=== PATIENT | female | born 1955 | race Caucasian/White ===

== ENCOUNTER → 2018-01-24 10:45 | Outpatient (POV) | payer MEDICAID, SELFPAY ==
[2018-01-24 11:01] VITALS: BP 123/69; PULSE 74; RESP 18; O2SAT 98
--- NOTE | 2018-01-24 16:28 | HMH.PMCON ---
Assessment and Plan (1) Degenerative disc disease Current visit: Yes Status: Chronic Category: Medical (2) Lumbar radiculopathy Current visit: Yes Status: Suspected Category: Medical Code(s): M54.16 - Radiculopathy, lumbar region - Assessment and plan all Dx Assessment and Plan for all problems:: We will take over the pain patient's pain pump refilled and reprogrammed in the [facility]. Patient currently had a Dilaudid 0.18 mg infusion a day. I will follow-up with this patient at her next intrathecal pain pump refill. This note was dictated using voice recognition software and may contain errors or omissions HPI - Data of Consult Consult date: 01/24/18 Requesting Physician: Deborah Silver APRN Primary Care Provider: Referral Provider, MD - Consult Narrative Reason for consult: Takeover of intrathecal pain pump management History of present illness: Ms. Sanders is a 62 year old female who presents today for consultation in regards to intrathecal pain pump management. Patient has been currently managed in our [place] office and doing quite well. Patient has a flowonix pain pump going at 0.18 mg of Dilaudid a day. Patient rates her pain a 6 out of 10 however she states this is high due to her travel here. Patient is currently doing well with her intrathecal pain pump. Patient denies any side effects to her medication. Patient states she is much more functional with it. Patient's SAMANTHA #[id number] reviewed and appropriate. CC: Deborah Silver APRN [facility] History I have reviewed the patient's past medical history: Yes Medical History: Reports:: Hyperlipidemia, Hypertension Other Medical History: Reports: Hypothyroidism - *Social History Smoking Status: Current every day smoker Tobacco Type: cigarettes # Packs/Day (cigarettes): 1 #Yrs smoked (if former smoker): 25 Alcohol Intake: never Occupational Status: other Housing: house Household Members: spouse - Psychiatric History Expresses thoughts of harming self/others: None Suicide Plan Description: No Plan *Family Hx:: Unable to obtain Review of Systems - Review of Systems ROS General: no recent weight change, no fever, no sleep disturbances Respiratory: no cough, no shortness of air, no recurring pulmonary infections Cardiovascular/Peripheral Vascular: No chest pain, No palpitations, no edema, no shortness of breath. Gastrointestinal: no incontinence, normal bowel movements reported Genitourinary: no incontinence Musculoskeletal: Back pain, leg pain Psychiatric: normal mood/ affect Neurological: [denies weakness in extremities], [denies balance issues] Objective Vital signs: Pulse Resp BP Pulse Ox 74 18 123/69 98 01/24/18 11:01 01/24/18 11:01 01/24/18 11:01 01/24/18 11:01 Narrative: Physical Exam General: Alert and oriented x3, no acute distress, pleasant and cooperative, [on room air] Lungs: Resps E/U, Symmetrical chest expansion, Eyes: PERRL Musculoskeletal: Flexion and extension of lumbar spine somewhat guarded secondary to pain, deep tendon reflexes normal, strength in upper and lower extremities [5/5], slightly antalgic gait noted Neurological: speech clear, interior specialist equal, no gross sensory deficits Opioid Risk Tool - Opioid Risk Tool-Female Family hx alcohol abuse: N Family hx illegal drugs: N Family hx rx drug abuse: N Personal hx alcohol abuse: N Personal hx illegal drugs: N Personal hx rx drug abuse: N Age: 45+ Hx of sexual abuse: N Mental health issues-ADD,OCD,Bipolar, etc: N Hx of depression: N Female Risk Score: 0
--- NOTE | 2018-01-24 16:31 | P.CONS_ITS ---
Assessment and Plan (1) Degenerative disc disease Current visit: Yes Status: Chronic Category: Medical (2) Lumbar radiculopathy Current visit: Yes Status: Suspected Category: Medical Code(s): M54.16 - Radiculopathy, lumbar region - Assessment and plan all Dx Assessment and Plan for all problems:: We will take over the pain patient's pain pump refilled and reprogrammed in the [facility]. Patient currently had a Dilaudid 0.18 mg infusion a day. I will follow-up with this patient at her next intrathecal pain pump refill. This note was dictated using voice recognition software and may contain errors or omissions HPI - Data of Consult Consult date: 01/24/18 Requesting Physician: Deborah Silver APRN Primary Care Provider: Referral Provider, MD - Consult Narrative Reason for consult: Takeover of intrathecal pain pump management History of present illness: Ms. Sanders is a 62 year old female who presents today for consultation in regards to intrathecal pain pump management. Patient has been currently managed in our [place] office and doing quite well. Patient has a flowonix pain pump going at 0.18 mg of Dilaudid a day. Patient rates her pain a 6 out of 10 however she states this is high due to her travel here. Patient is currently doing well with her intrathecal pain pump. Patient denies any side effects to her medication. Patient states she is much more functional with it. Patient's SAMANTHA #[id number] reviewed and appropriate. CC: Deborah Silver APRN [facility] History I have reviewed the patient's past medical history: Yes Medical History: Reports:: Hyperlipidemia, Hypertension Other Medical History: Reports: Hypothyroidism - *Social History Smoking Status: Current every day smoker Tobacco Type: cigarettes # Packs/Day (cigarettes): 1 #Yrs smoked (if former smoker): 25 Alcohol Intake: never Occupational Status: other Housing: house Household Members: spouse - Psychiatric History Expresses thoughts of harming self/others: None Suicide Plan Description: No Plan *Family Hx:: Unable to obtain Review of Systems - Review of Systems ROS General: no recent weight change, no fever, no sleep disturbances Respiratory: no cough, no shortness of air, no recurring pulmonary infections Cardiovascular/Peripheral Vascular: No chest pain, No palpitations, no edema, no shortness of breath. Gastrointestinal: no incontinence, normal bowel movements reported Genitourinary: no incontinence Musculoskeletal: Back pain, leg pain Psychiatric: normal mood/ affect Neurological: [denies weakness in extremities], [denies balance issues] Objective Vital signs: Pulse Resp BP Pulse Ox 74 18 123/69 98 01/24/18 11:01 01/24/18 11:01 01/24/18 11:01 01/24/18 11:01 Narrative: Physical Exam General: Alert and oriented x3, no acute distress, pleasant and cooperative, [ on room air] Lungs: Resps E/U, Symmetrical chest expansion, Eyes: PERRL Musculoskeletal: Flexion and extension of lumbar spine somewhat guarded secondary to pain, deep tendon reflexes normal, strength in upper and lower extremities [5/5], slightly antalgic gait noted Neurological: speech clear, sleeve wheel maker equal, no gross sensory deficits Opioid Risk Tool - Opioid Risk Tool-Female Family hx alcohol abuse: N Family hx illegal drugs: N Family hx rx drug abuse: N Personal hx alcohol abuse: N Personal hx illega
== END ==
PROVIDERS: Visit Provider Clinical Nurse Specialist Family Health
DX: M54.16 Radiculopathy, lumbar region (principal)
CPT/HCPCS: 99202

== ENCOUNTER → 2019-04-25 11:09 | Outpatient (POV) | payer MEDICAID, SELFPAY ==
[2019-04-25 11:54] VITALS: BP 136/72; PULSE 96; RESP 18; O2SAT 99; BMI 34.5
--- NOTE | 2019-04-25 12:44 | P.CONS_ITS ---
[facility] Pain Management SOAP Note Subjective:: Patient is a pleasant 63-year-old white female who presents today for consultation in regards to a neurostimulator. She has an intrathecal pain pump which she states works very well for her back however most of her pain is in her low hips and bilateral legs. Patient states that she discussed her cielo rostimulator with Dr. Wade at his [place] clinic and wants to move forward with this. Patient has swelling of bilateral lower extremities along with color changes. She rates her pain a 9 out of 10 bilateral legs. Patient is not on any anticoagulation therapy. She is tried and failed multiple therapies including injections, anti-inflammatories, oral medications, intrathecal pain pump adjustments. She continues a home stretching program. ROS General: no recent weight change, no fever, no sleep disturbances Respiratory: no cough, no shortness of air, no recurring pulmonary infections Cardiovascular/Peripheral Vascular: No chest pain, No palpitations, no edema, no shortness of breath. Gastrointestinal: no incontinence, normal bowel movements reported Genitourinary: no incontinence Musculoskeletal: Back pain, leg pain Psychiatric: normal mood/ affect Neurological: [denies weakness in extremities], [denies balance issues] Objective:: Physical Exam General: Alert and oriented x3, no acute distress, pleasant and cooperative, [on room air] Lungs: Resps E/U, Symmetrical chest expansion, Eyes: PERRL Musculoskeletal: Flexion and extension of lumbar spine somewhat guarded secondary to pain, deep tendon reflexes normal, strength in upper and lower extremities [5/5], [abnormal gait noted] Neurological: speech clear, digital cartographer equal, no gross sensory deficits Assessment:: Degenerative disc disease lumbar spine with lumbar radiculopathy and CRPS type II bilateral lower extremities Plan:: Patient would like to go to her psychiatrist to get her stimulator consultation in [place]. Patient is can look into this and give us a call when her appointment is so we can look for the note after that we will begin the process of setting her up for a trial... Dr. Wade has reviewed this note and agrees with this plan of care. This note was dictated using voice recognition software and may contain errors or omissions Pain Management Hx Components *Have you ever received a pneumonia vaccine?: Yes *Have you received a flu vaccine this season?: Yes - *Social History *Occupational Status:: other *Travel in the last 8 weeks: None
[2019-04-25 13:01] LABS: Amphetamine/Metha Screen,Urine Negative ng/mL (<1000); Barbiturates Screen,Urine Negative ng/mL (<200); Benzodiazepines Screen,Urine Negative ng/mL (<200); Cannabinoid Screen,Urine Negative ng/mL (<50); Cocaine Screen,Urine Negative ng/mL (<300); Methadone Screen,Urine Negative ng/mL (<300); Opiate Screen,Urine Negative ng/mL (<300); Phencyclidine Screen,Urine Negative ng/mL (<25)
[2019-04-29 18:02] LABS: Opiates Negative (Cutoff=100)
== END ==
PROVIDERS: PCP Clinical Nurse Specialist Family Health; Visit Provider Clinical Nurse Specialist Family Health
DX: M51.16 Intervertebral disc disorders with radiculopathy, lumbar region (principal); G57.73 Causalgia of bilateral lower limbs
CPT/HCPCS: 80305; 80361; 80365; 99212; G0480

== ENCOUNTER → 2019-07-10 10:47 | Outpatient (POV) | payer MEDICAID, SELFPAY ==
[2019-07-10 10:55] VITALS: BP 132/50; PULSE 94; RESP 18; O2SAT 98; BMI 34.5
--- NOTE | 2019-07-10 12:51 | HMH.PMPROC ---
- Procedure Date: 07/10/19 Time: 12:51 Anesthesiologist:: Deborah Silver APRN Complications:: None Pre-procedure Diagnosis:: Generative disc disease lumbar spine with lumbar radiculopathy symptoms bilateral foot pain with autonomic changes and CRPS type II symptoms Post-procedure Diagnosis:: Same Indications for Procedure:: Patient is a 63-year-old white female who presents today have her neurostimulator lead removed post trial. Patient states she had 80 to 90% relief of her pain or autonomic symptoms decreased. Patient states she was much more active she rates her pain today a 5 out of 10 after her neurostimulator was turned off overall patient very satisfied with a trial. This is a successful trial. She is failed all modalities of treatment including injections, intrathecal pain pump changes oral medications physical therapy and is not a surgical candidate. Physical Exam General: Alert and oriented x3, no acute distress, pleasant and cooperative, [on room air] Lungs: Resps E/U, Symmetrical chest expansion, Eyes: PERRL Musculoskeletal: Flexion and extension of lumbar spine somewhat guarded secondary to pain, deep tendon reflexes normal, strength in upper and lower extremities [5/5], [abnormal gait noted] Neurological: speech clear, talent recruiter equal, no gross sensory deficits Procedure Details:: After informed consent was obtained the risk and benefits of the procedure were explained to the patient. Patient's vital signs were monitored with noninvasive blood pressure cuff and pulse oximeter. Patient's tape was removed on her back. The area in which her epidural leads entered was examined to ensure no redness or draining. Patient leads were then removed in sterile fashion. Patient then had Band-Aids placed over the puncture sites. Patient tolerated the procedure well. Plan and Disposition:: We will schedule the patient for permanent placement. She is not on any blood thinners. I will follow-up with her after this reassess her symptoms at that time she is been instructed to call the office if she has any issues prior to her next appointment. She had bilateral leads placed at T8-T9 vertebral bodies. Dr. Wade has reviewed this note and agrees with this plan of care. This note was dictated using voice recognition software and may contain errors or omissions
== END ==
PROVIDERS: Visit Provider Clinical Nurse Specialist Family Health
DX: M51.16 Intervertebral disc disorders with radiculopathy, lumbar region (principal); G57.73 Causalgia of bilateral lower limbs
CPT/HCPCS: 99212

== ENCOUNTER → 2019-08-17 09:16 | Outpatient (POV) | payer MEDICAID, SELFPAY ==
[2019-08-17 09:47] VITALS: BP 149/74; PULSE 97; RESP 18; O2SAT 99; BMI 33.8
--- NOTE | 2019-08-17 09:58 | HMH.PAINSOAP ---
[facility] Pain Management SOAP Note Subjective:: Patient is a pleasant 63-year-old white female who presents today for follow-up after a spinal cord stimulator placement. She is being treated for low back pain with lumbar radiculopathy symptoms, as well as bilateral foot pain with autonomic trunk is and CRPS type II symptoms of her lower extremities. As her pain a 3 out of 10 today. She says she is doing well overall. She also has an intrathecal pain pump. Patient tried therapies of physical therapy, failed injections, oral medications. Patient is not a surgical candidate. She is continue with anti-inflammatories and a home stretching program. Patient says that she is concerned of falling and is requesting order for a scooter or power chair. She says that she did do an evaluation at [facility] in [place]. It was determined that the patient does need a scooter for safety. Patient says that she was denied the power chair. She is asking for a another order for the device. Review of Systems General: No recent weight changes, no fever, no sleep disturbances Respiratory: No cough, no shortness of air, no recurring pulmonary infections Cardiovascular/peripheral vascular: No chest pain, no palpitations, no edema, no shortness of breath Gastrointestinal: No new onset incontinence, normal bowel movements reported Genitourinary: No new onset incontinence Musculoskeletal: Low back pain Psychiatric: Normal mood/affect Neurological: [Denies weakness in extremities], [denies balance issues] Objective:: Physical exam General: Alert and oriented x3, no acute distress, pleasant and cooperative, [on room air] Lungs: Respirations even and unlabored, symmetrical chest expansion Eyes: PERRL Musculoskeletal: Flexion and extension of lumbar spine somewhat guarded secondary to pain, deep tendon reflexes normal, strength in upper and lower extremities [5/5], [abnormal gait noted] Neurological: Speech clear, spooling machine operator equal, no gross sensory deficit Assessment:: Degenerative disc disease lumbar spine with lumbar radiculopathy symptoms, bilateral foot pain with autonomic changes, CRPS type II lower extremities Plan:: Overall, the patient is doing well following her spinal cord stimulator placement. The wound VAC was removed today. Her incision was well approximated, no redness, no drainage was noted to the area. She will follow-up with us in 2 weeks for suture removal. Patient has instructed to contact the clinic if she has any concerns before next appointment. Dr. Wade has reviewed this note and agrees with this plan of care. This note was dictated using voice recognition software and make contain errors or omissions. 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 Denies: Blood Transfusion Reaction Laterality Cases: Bilateral: Carpal Tunnel Release, Other Other Surgeries: Yes: Cholecystectomy, Hysterectomy-Total, Other (hysterectomy, bladder tack, pain pump). No: Pacemaker Amputation: No Fractures: No - *Social History Smoking Status: Current every day smoker Tobacco Type: cigarettes # Packs/Day (cigarettes): 1 #Yrs smoked (if former smoker): 25 Alcohol Intake: never Substance Use Type: denies use *Occupational Status:: other Housing: house Household Members: spouse *Travel in the last 8 weeks: None - Psychiatric History Pschychiatric History:: Reports:: Depression Family Hx:: Asthma, Cancer, Coronary Artery Disease, Diabetes, Heart Attack, Hyperlipidemia, Hypertension, Stroke, Thyroid Disorder, Substance ab
== END ==
PROVIDERS: PCP Anesthesiology; Visit Provider Clinical Nurse Specialist Family Health
DX: M51.16 Intervertebral disc disorders with radiculopathy, lumbar region (principal); G57.73 Causalgia of bilateral lower limbs; M79.672 Pain in left foot; M79.671 Pain in right foot
CPT/HCPCS: 99212

== ENCOUNTER → 2019-09-04 12:57 | Outpatient (POV) | payer MEDICAID, SELFPAY ==
[2019-09-04 13:34] VITALS: BP 154/64; PULSE 112; RESP 18; O2SAT 99; BMI 34.2
--- NOTE | 2019-09-04 13:35 | HMH.PAINSOAP ---
[facility] Pain Management SOAP Note Subjective:: Patient is a pleasant 63-year-old white female who presents today for follow-up after neurostimulator implant overall patient is doing extremely well she rates her pain a 3 out of 10. She is having some swelling in her legs however she does have a cardiac history. She is going to be following up with her workforce development vice president. She is also having some knee pain she is in a see the clinic in [place] for knee injections. Patient overall doing well. She does have an intrathecal pain pump. Patient does have some weakness in her legs. She may need physical therapy once she has been released from restrictions with a neurostimulator implant. There is no sign symptoms of infection. ROS General: no recent weight change, no fever, no sleep disturbances Respiratory: no cough, no shortness of air, no recurring pulmonary infections Cardiovascular/Peripheral Vascular: No chest pain, No palpitations, no edema, no shortness of breath. Gastrointestinal: no new onset incontinence, normal bowel movements reported Genitourinary: no new onset incontinence Musculoskeletal: Back pain, leg pain Psychiatric: normal mood/ affect Neurological: [denies new onset weakness in extremities], [denies new onset balance issues] Objective:: Physical Exam General: Alert and oriented x3, no acute distress, pleasant and cooperative, [on room air] Lungs: Resps E/U, Symmetrical chest expansion, Eyes: PERRL Musculoskeletal: Flexion and extension of lumbar spine somewhat guarded secondary to pain, deep tendon reflexes normal, strength in upper and lower extremities [5/5], [abnormal gait noted] Neurological: speech clear, ham marker equal, no gross sensory deficits Assessment:: Degenerative disc disease lumbar spine with lumbar radiculopathy symptoms, bilateral foot pain with autonomic changes and CRPS type II Plan:: We will see the patient back at her next appointment for her intrathecal pain pump refill and reprogram. She is been instructed to call the office if she has any issues prior to her next appointment. Dr. Wade has reviewed this note and agrees with this plan of care. 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 Denies: Blood Transfusion Reaction Laterality Cases: Bilateral: Carpal Tunnel Release, Other Other Surgeries: Yes: Cholecystectomy, Hysterectomy-Total, Other (hysterectomy, bladder tack, pain pump). No: Pacemaker Amputation: No Fractures: No - *Social History Smoking Status: Current every day smoker Tobacco Type: cigarettes # Packs/Day (cigarettes): 1 #Yrs smoked (if former smoker): 25 Alcohol Intake: never Substance Use Type: denies use *Occupational Status:: other Housing: house Household Members: spouse *Travel in the last 8 weeks: None - Psychiatric History Pschychiatric History:: Reports:: Depression Family Hx:: Asthma, Cancer, Coronary Artery Disease, Diabetes, Heart Attack, Hyperlipidemia, Hypertension, Stroke, Thyroid Disorder, Substance abuse, Alcoholism
== END ==
PROVIDERS: Visit Provider Clinical Nurse Specialist Family Health
DX: M51.16 Intervertebral disc disorders with radiculopathy, lumbar region (principal); G57.73 Causalgia of bilateral lower limbs; Z85.89 Personal history of malignant neoplasm of other organs and systems; J44.9 Chronic obstructive pulmonary disease, unspecified; F32.9 Major depressive disorder, single episode, unspecified; K21.9 Gastro-esophageal reflux disease without esophagitis; E78.5 Hyperlipidemia, unspecified; I10 Essential (primary) hypertension; Z72.0 Tobacco use; E03.9 Hypothyroidism, unspecified
CPT/HCPCS: 99212

== ENCOUNTER → 2019-12-11 13:53 | Day surgery (SDC) | payer MEDICAID, SELFPAY ==
[2019-12-11 14:25] VITALS: BP 165/88; BP 168/87; BP 184/87; PULSE 108; PULSE 97; PULSE 98; RESP 18; O2SAT 93; O2SAT 94; O2SAT 99; BMI 34.5
--- NOTE | 2019-12-11 14:48 | HMH.PMPROC ---
- Procedure Date: 12/11/19 Time: 14:48 Anesthesiologist:: Deborah Silver APRN Complications:: None Pre-procedure Diagnosis:: Degenerative disc disease lumbar spine with lumbar radiculopathy Post-procedure Diagnosis:: Same Indications for Procedure:: Patient is a very pleasant 64-year-old white female who presents today for intrathecal pain pump refill and reprogram overall she is doing extremely well. Patient is currently on Dilaudid 0.5 mg/day. She denies side effects or medication [facility] #[id number] reviewed and appropriate. Physical Exam General: Alert and oriented x3, no acute distress, pleasant and cooperative, [on room air] Lungs: Resps E/U, Symmetrical chest expansion, Eyes: PERRL Musculoskeletal: Flexion and extension of lumbar spine somewhat guarded secondary to pain, deep tendon reflexes normal, strength in upper and lower extremities [5/5], [abnormal gait noted] Neurological: speech clear, client program manager equal, no gross sensory deficits Procedure Details:: Informed consent was obtained and the risk and benefits of the procedure were explained to the patient. The patient was taken to the procedure room where noninvasive monitoring was placed including noninvasive blood pressure cuff and pulse oximeter. Patient's pump was interrogated. The area over the pump was cleansed with chlorhexidine as a cleansing solution. In sterile fashion the pump was accessed with a 22-gauge needle. Approximately 9 mL's were removed of the pump solution and discarded appropriately. The pump was then refilled with 20 mL's of hydromorphone 7 mg/mL. The needle was withdrawn and a bandage was placed over the puncture site. The infusion rate was reprogrammed to continue at 0.5 mg/day. The patient tolerated the procedure well. Plan and Disposition:: We will follow-up at her next intrathecal pain pump refill and reprogram she is been instructed to call the office if she has any issues prior to her next appointment. We specifically discussed risk factors for Covid-19 including age, heart or lung disease, diabetes, immunosuppression and travel. We also discussed that NSAIDs may worsen Covid-19 infection symptoms and that they should not be used to treat Covid-19 symptoms. Patient was also informed that corticosteroids in any form oral or injectable will decrease immune response and may increase risk of Covid-[address] Wade has reviewed this patient's chart and this note and agrees with plan of care. Patient has been instructed to call the office if they have any issues prior to the next appointment.
== END ==
PROVIDERS: PCP Nurse Practitioner Family; Visit Provider Clinical Nurse Specialist Family Health
DX: M51.16 Intervertebral disc disorders with radiculopathy, lumbar region (principal)
CPT/HCPCS: 95991

== ENCOUNTER 2020-04-15 13:11 | Day surgery (SDC) | payer MEDICAID, SELFPAY ==
[2020-04-15 13:21] VITALS: BP 137/73; BP 154/65; PULSE 97; PULSE 99; RESP 18; TEMP 36.1; O2SAT 91; BMI 34.0
[2020-04-15 13:34] VITALS: BP 171/76; PULSE 104; O2SAT 91
--- NOTE | 2020-04-15 13:35 | P.PCN_ITS ---
- Procedure Date: 04/15/20 Time: 13:35 Anesthesiologist:: Deborah Silver APRN Complications:: None Pre-procedure Diagnosis:: Degenerative disc disease lumbar spine lumbar radiculopathy Post-procedure Diagnosis:: Same Indications for Procedure:: Patient is a very pleasant 64-year-old white female who presents today for intrathecal pain pump refill and reprogram. Overall she is doing well she is currently on a infusion of Dilaudid 0.5 mg/day. [facility] #[id number] reviewed and appropriate. Urine drug screens have been appropriate. She denies side effects from medication. She recently has been diagnosed with bone spurs in her right foot and is wearing a boot. This has increased her pain somewhat. She would like a small increase in her pain pump today. Physical Exam General: Alert and oriented x3, no acute distress, pleasant and cooperative, [on room air] Lungs: Resps E/U, Symmetrical chest expansion, Eyes: PERRL Musculoskeletal: Flexion and extension of lumbar spine somewhat guarded secondary to pain, deep tendon reflexes normal, strength in upper and lower extremities [5/5], [abnormal gait noted] Neurological: speech clear, executive search consultant equal, no gross sensory deficits Procedure Details:: Informed consent was obtained and the risk and benefits of the procedure were explained to the patient. The patient was taken to the procedure room where noninvasive monitoring was placed including noninvasive blood pressure cuff and pulse oximeter. Patient's pump was interrogated. The area over the pump was cleansed with chlorhexidine as a cleansing solution. In sterile fashion the pump was accessed with a 22-gauge needle. Approximately 10.5 mL's were removed of the pump solution and discarded appropriately. The pump was then refilled with 20 mL's of hydromorphone 7 mg/mL. The needle was withdrawn and a bandage was placed over the puncture site. The infusion rate was reprogrammed to a 5.5 mg/day. The patient tolerated the procedure well. Plan and Disposition:: I will follow-up with the patient at her next intrathecal pain pump refill and reprogram she has been instructed to call the office if she has any issues prior to next appointment. Dr. Wade has reviewed this note and agrees with this plan of care. This note was dictated using voice recognition software and may contain errors or omissions
[2020-04-15 13:40] VITALS: BP 171/76; PULSE 101; O2SAT 91
== END 2020-04-15 13:59 | disposition home or self-care (01) ==
PROVIDERS: PCP Nurse Practitioner Family; Visit Provider Clinical Nurse Specialist Family Health
DX: M51.16 Intervertebral disc disorders with radiculopathy, lumbar region (principal); I10 Essential (primary) hypertension; J44.9 Chronic obstructive pulmonary disease, unspecified; F41.9 Anxiety disorder, unspecified; F32.9 Major depressive disorder, single episode, unspecified; E03.9 Hypothyroidism, unspecified; M79.18 Myalgia, other site; M19.90 Unspecified osteoarthritis, unspecified site; Z88.0 Allergy status to penicillin; Z88.1 Allergy status to other antibiotic agents; Z88.6 Allergy status to analgesic agent; Z72.0 Tobacco use; Z90.49 Acquired absence of other specified parts of digestive tract
CPT/HCPCS: 62370

== ENCOUNTER 2020-09-09 12:12 | Day surgery (SDC) | payer MEDICAID, SELFPAY ==
[2020-09-09 12:50] VITALS: BP 179/86; PULSE 100; RESP 18; TEMP 36.6; O2SAT 98; BMI 34.5
[2020-09-09 13:02] VITALS: BP 185/90; PULSE 94; RESP 18; O2SAT 95
[2020-09-09 13:21] VITALS: BP 180/88; PULSE 93; RESP 18; O2SAT 95
--- NOTE | 2020-09-09 13:28 | P.PCN_ITS ---
- Procedure Date: 09/09/20 Time: 13:28 Anesthesiologist:: Deborah Silver APRN Complications:: None Pre-procedure Diagnosis:: Degenerative disc disease lumbar spine lumbar radiculopathy Post-procedure Diagnosis:: Same Indications for Procedure:: Patient is a pleasant 64-year-old white female who presents today for intrathecal pain pump refill and reprogram. Overall she is doing well she is currently on an infusion of Dilaudid 0.55 mg/day. [facility] #[id number] reviewed and appropriate. She is having some hip pain however it is not constant. It does not seem to be coming from her back. I discussed with her to see her primary care for potential x-rays if she is continuing to have hip pain. She would like an increase in her intrathecal infusion. Procedure Details:: Informed consent was obtained and the risk and benefits of the procedure were explained to the patient. The patient was taken to the procedure room where noninvasive monitoring was placed including noninvasive blood pressure cuff and pulse oximeter. Patient's pump was interrogated. The area over the pump was cleansed with chlorhexidine as a cleansing solution. In sterile fashion the pump was accessed with a 22-gauge needle. Approximately 7.5 mL's were removed of the pump solution and discarded appropriately. The pump was then refilled with 20 mL's of Dilaudid 7 mg/mL. The needle was withdrawn and a bandage was placed over the puncture site. The infusion rate was reprogrammed to 0.65 milligrams per day.. The patient tolerated the procedure well. Plan and Disposition:: We will see the patient back at her next intrathecal pain pump refill and reprogram she has been instructed to call the office if she has any issues. I also encouraged her to reach out to the hobbies and crafts sales representative to have her stimulator reprogrammed. Dr. Wade has reviewed this note and agrees with this plan of care. This note was dictated using voice recognition software and may contain errors or omissions
[2020-09-09 13:40] VITALS: BP 156/73; PULSE 81; RESP 18; O2SAT 98
== END 2020-09-09 13:40 | disposition home or self-care (01) ==
LOC: SC.PAINP 12:14
PROVIDERS: PCP Nurse Practitioner Family; Visit Provider Clinical Nurse Specialist Family Health
DX: M51.16 Intervertebral disc disorders with radiculopathy, lumbar region (principal); E78.5 Hyperlipidemia, unspecified; I10 Essential (primary) hypertension; K21.9 Gastro-esophageal reflux disease without esophagitis; E07.9 Disorder of thyroid, unspecified; Z88.0 Allergy status to penicillin; Z88.1 Allergy status to other antibiotic agents; Z88.4 Allergy status to anesthetic agent; Z72.0 Tobacco use; Z79.899 Other long term (current) drug therapy
CPT/HCPCS: 62370

== ENCOUNTER 2021-01-13 13:23 | Day surgery (SDC) | payer MEDICAID, SELFPAY ==
[2021-01-13 13:28] VITALS: BP 180/84; PULSE 108; RESP 18; TEMP 36.7; O2SAT 97; BMI 36.2
[2021-01-13 13:38] VITALS: BP 150/64; PULSE 89; RESP 18; O2SAT 94
[2021-01-13 13:53] VITALS: BP 150/64; PULSE 92; RESP 18; O2SAT 91
--- NOTE | 2021-01-13 13:58 | HMH.PMPROC ---
- Procedure Date: 01/13/21 Time: 14:01 Anesthesiologist:: Deborah Silver APRN Complications:: None Pre-procedure Diagnosis:: Degenerative disc disease lumbar spine lumbar radiculopathy and back pain Post-procedure Diagnosis:: Same Indications for Procedure:: Patient is a pleasant 65-year-old white female who presents today for intrathecal pain pump refill and reprogram. She rates her pain today 5 out of 10 she is recently had a heart catheterization she is also recently lost a daughter. Her has also recently been diagnosed with lung cancer. Patient does not need any changes made to her intrathecal infusion. Patient is currently on 0.65 mg of Dilaudid a day. She denies side effects to this. Procedure Details:: Informed consent was obtained and the risk and benefits of the procedure were explained to the patient. The patient was taken to the procedure room where noninvasive monitoring was placed including noninvasive blood pressure cuff and pulse oximeter. Patient's pump was interrogated. The area over the pump was cleansed with chlorhexidine as a cleansing solution. In sterile fashion the pump was accessed with a 22-gauge needle. Approximately 8 mL's were removed of the pump solution and discarded appropriately. The pump was then refilled with 20 mL's of Dilaudid 7 mg/mL. The needle was withdrawn and a bandage was placed over the puncture site. The infusion rate was reprogrammed to continue at 0.65 mg/day. The patient tolerated the procedure well. Plan and Disposition:: We will see the patient back in her next intrathecal pain pump refill and reprogram she is been instructed to call the office if she has any issues prior to her next appointment. [facility] #[id number] reviewed and appropriate. Dr. Wade has reviewed this note and agrees with this plan of care. This note was dictated using voice recognition software and may contain errors or omissions
[2021-01-13 14:06] VITALS: BP 156/74; PULSE 90; RESP 18; O2SAT 98
== END 2021-01-13 14:07 | disposition home or self-care (01) ==
LOC: SC.PAINP 13:25
PROVIDERS: PCP Nurse Practitioner Family; Visit Provider Clinical Nurse Specialist Family Health
DX: M51.16 Intervertebral disc disorders with radiculopathy, lumbar region (principal); Z45.1 Encounter for adjustment and management of infusion pump; J44.9 Chronic obstructive pulmonary disease, unspecified; G47.33 Obstructive sleep apnea (adult) (pediatric); K21.9 Gastro-esophageal reflux disease without esophagitis; F32.9 Major depressive disorder, single episode, unspecified; E78.5 Hyperlipidemia, unspecified; I10 Essential (primary) hypertension; Z88.0 Allergy status to penicillin; Z88.1 Allergy status to other antibiotic agents; Z88.5 Allergy status to narcotic agent; Z79.899 Other long term (current) drug therapy
CPT/HCPCS: 95991

== ENCOUNTER → 2021-06-24 10:14 | Outpatient (POV) | payer MEDICAID, SELFPAY ==
--- NOTE | 2021-06-24 10:41 | HMH.PMPROC ---
- Procedure Date: 06/24/21 Time: 10:41 Anesthesiologist:: Mili Young APRN Complications:: None Pre-procedure Diagnosis:: Degenerative disc disease lumbar spine with lumbar radiculopathy symptoms and low back pain Post-procedure Diagnosis:: Same Indications for Procedure:: Patient is a 65-year-old white female who presents today for intrathecal pain pump adjustment. She is at home refill patient through [employer]. She is managed with her urine drug screens and medication through their company. She is currently on hydromorphone at 0.80 mg/day and denies any side effects. She is doing well overall with her medicine. She does not need any changes today. She does report to have some tenderness at the incision site. Tai #[id number] has been reviewed and is appropriate. Drug screen is appropriate. Physical exam General: Alert and oriented x3, no acute distress, pleasant and cooperative Lungs: Respirations even and unlabored, symmetrical chest expansion Eyes: PERRL Musculoskeletal: Flexion and extension of lumbar [spine] somewhat guarded secondary to pain, [antalgic gait noted] Neurological: Speech clear, no gross sensory deficit Procedure Details:: Informed consent was obtained and the risk and benefits of the procedure were explained to the patient. Patient was taken to the procedure room where noninvasive monitoring was placed including noninvasive blood pressure cuff and pulse oximeter. Patient's pump was interrogated and was reprogrammed to continued at hydromorphone at 0.80 mg/day. The patient tolerated the procedure well with no complications. Plan and Disposition:: We will see the patient back as needed. She will continue with home refills.. Patient has been instructed to contact the clinic with any concerns before the next appointment. Dr. Wade has reviewed this note and agrees with this plan of care. This note was dictated using voice recognition software and make contain errors or omissions.
[2021-06-24 10:51] VITALS: BP 144/77; PULSE 89; RESP 18; O2SAT 97; BMI 34.4
== END ==
PROVIDERS: Visit Provider Clinical Nurse Specialist Family Health
DX: M51.16 Intervertebral disc disorders with radiculopathy, lumbar region (principal)
CPT/HCPCS: 99212; G0463

== ENCOUNTER → 2021-11-13 12:56 | Outpatient (POV) | payer MEDICARE, MEDICAID, SELFPAY ==
--- NOTE | 2021-11-13 13:57 | XR_ITS ---
FINAL REPORT CLINICAL HISTORY: c/o back pain and left hip pain FINDINGS: Thoracic spine 2 views were obtained. There is no acute fracture. Alignment is normal. There is accentuation of the thoracic kyphosis. There is moderate anterior osteophyte formation. A spinal stimulator is present. IMPRESSION: Moderate anterior osteophyte formation. Lumbar spine 2 views were obtained. There is no acute fracture. Alignment is normal. There is mild anterior osteophyte formation. A spinal stimulator is present. IMPRESSION: Mild anterior osteophyte formation. Reviewed, Interpreted and Dictated by Cordell Roe MD Transcribed by Tristan Clemons Authenticated by Cordell Roe MD on 11/13/2021 03:15:20 PM [facility]
--- NOTE | 2021-11-13 13:57 | XR_ITS ---
FINAL REPORT CLINICAL HISTORY: HIP AND BACK PAIN FINDINGS: 2 views of the left hip were obtained. There is no acute fracture or dislocation. The joint spaces are intact. There are no soft tissue abnormalities. IMPRESSION: No acute process. Reviewed, Interpreted and Dictated by Cordell Roe MD Transcribed by Tristan Clemons Authenticated by Cordell Roe MD on 11/13/2021 03:15:21 PM [facility]
[2021-11-13 14:01] VITALS: BP 138/70; PULSE 86; RESP 18; TEMP 36.2; O2SAT 95; BMI 34.5
--- NOTE | 2021-11-13 15:02 | HMH.PAINSOAP ---
[facility] Pain Management SOAP Note Subjective:: Patient is a pleasant 66-year-old female who presents today for follow-up. Patient is currently being treated for degenerative disc disease of lumbar spine with lumbar radiculopathy symptoms, and chronic low back pain. Patient is being managed with an intrathecal pain pump. She is at home refill with [facility]. He also has a [employer] spinal cord stimulator. Today, patient states that she fell twice about 2 to 3 weeks ago. She says that she bumped into her palm on her second fall and landed on her left hip. Ever since then she started feeling some tenderness around her left pain pump. Additionally, she has been having a lot of issues walking because she has a lot of left hip pain. She says that she has pain every time she uses her left hip. She says that she has been having increasing left hip pain since the fall. She rates her pain today as 9 out of 10. She is walking with a cane today in the office. Review of Systems: General: No recent weight changes, no fever, no sleep disturbances Respiratory: No cough, no shortness of air, no recurring pulmonary infections Cardiovascular/peripheral vascular: No chest pain, no palpitations, no edema, no shortness of breath Gastrointestinal: No new onset incontinence, normal bowel movements reported Genitourinary: No new onset incontinence Musculoskeletal: Low back pain, left hip pain Psychiatric: [Normal mood/affect] Neurological: [Denies weakness in extremities], [denies balance issues] [facility] History Medical History: Reports:: Cancer, Chronic Obstructive Pulmonary Disease (COPD), Coronary Artery Disease, Depression, Gastroesophageal Reflux Disease(GERD), Hyperlipidemia, Hypertension Denies:: Diabetes Mellitus Type 1, Diabetes Mellitus Type 2, Internal Pacemaker, MRSA, Seizures *Have you ever received a pneumonia vaccine?: Yes *Have you received a flu vaccine this season?: Yes Other Medical History: Reports: Arthritis, Hypothyroidism, Thyroid Disease. Denies: Blood Transfusion Reaction Laterality Cases: Bilateral: Carpal Tunnel Release, Other Other Surgeries: Yes: Cardiac Catheterization, Cholecystectomy, Hysterectomy-Total (cancer), Other (hysterectomy, bladder tack, pain pump). No: Pacemaker Amputation: No Fractures: No - *Social History Smoking Status: Current every day smoker Tobacco Type: cigarettes # Packs/Day (cigarettes): 1 #Yrs smoked (if former smoker): 25 Alcohol Intake: never Substance Use Type: denies use *Occupational Status:: other Housing: house Household Members: spouse *Travel in the last 8 weeks: None - Psychiatric History Pschychiatric History:: Reports:: Depression Family Hx:: Unable to obtain
--- NOTE | 2021-11-13 15:09 | P.PCN_ITS ---
- Procedure Date: 11/13/21 Time: 15:09 Anesthesiologist:: JONES Amanda Complications:: None Pre-procedure Diagnosis:: Degenerative disc disease of lumbar spine with lumbar radiculopathy symptoms Post-procedure Diagnosis:: Same Indications for Procedure:: Patient is a pleasant 66-year-old female who presents today for follow-up. Patient is currently being treated for degenerative disc disease of lumbar spine with lumbar radiculopathy symptoms, and chronic low back pain. Patient is being managed with an intrathecal pain pump. She is at home refill with [facility]. He also has a [employer] spinal cord stimulator. Today, patient states that she fell twice about 2 to 3 weeks ago. She says that she bumped into her palm on her second fall and landed on her left hip. Ever since then she started feeling some tenderness around her left pain pump. Additionally, she has been having a lot of issues walking because she has a lot of left hip pain. She says that she has pain every time she uses her left hip. She says that she has been having increasing left hip pain since the fall. She rates her pain today as 9 out of 10. She is walking with a cane today in the office. Physical Exam: General: Alert and oriented x3, no acute distress, pleasant and cooperative, [on room air] Lungs: Respirations even and unlabored, symmetrical chest expansion Eyes: PERRL Musculoskeletal: Flexion and extension of lumbar [spine] somewhat guarded secondary to pain, [antalgic gait noted] Neurological: Speech clear, no gross sensory deficit Procedure Details:: Informed consent was obtained and the risk and benefits of the procedure were explained to the patient. Patient was taken to the procedure room where noninvasive monitoring was placed including noninvasive blood pressure cuff and pulse oximeter. Patient's pump was interrogated. Patient is PTC device has been reprogrammed to provide Dilaudid 0.05mg up to 6 times a day. The patient tolerated the procedure well with no complications. Plan and Disposition:: Patient states that she fell about 2 to 3 weeks ago. At her second fall, she says that she had her intrathecal pain pump and fell on her left side. Ever since then she has been hurting in her left hip and she feels like she is tender to palpation around her left intrathecal pain pump. I ordered an x-ray of her lumbar and thoracic spines to see if any of the leads and catheter have migrated. Patient reports no changes to her back pain. Her thoracic and lumbar x-ray shows that the leads and catheter are still in the right places. Since she is has been complaining of left hip pain and tenderness around her anterior left hip, I also ordered an AP left hip x-ray to rule out any fracture. We are still waiting reports on this x-ray. If a fracture is found, we will refer the patient to Ortho. For pain management, I adjusted her PTC device from Dilaudid 0.05mg every 6 hours to every 4 hours. Patient does live over an hour and a half away in the clinic. We will follow up with her through telehealth in 2 weeks. Patient has been instructed to contact the clinic with any concerns before the next appointment. Dr. Wade has reviewed this note and agrees with this plan of care. This note was dictated using voice recognition software and make contain errors or omissions.
== END ==
LOC: SC.PAIN 12:59 → RAD 14:12
PROVIDERS: Visit Provider Student in an Organized Health Care Education/Training Program
DX: M54.6 Pain in thoracic spine (principal); M54.50 Low back pain, unspecified; M25.552 Pain in left hip
CPT/HCPCS: 72084; 73502; 99212; G0463

== ENCOUNTER → 2022-05-14 13:03 | Outpatient (POV) | payer MEDICARE, MEDICAID, SELFPAY ==
[2022-05-14 13:27] VITALS: BP 127/67; PULSE 95; RESP 20; TEMP 36.6; O2SAT 94; BMI 25.4
--- NOTE | 2022-05-14 13:38 | EXP.PAIN.SOA ---
[facility] Pain Management SOAP Note Subjective:: Patient is a pleasant 66-year-old female who presents today for follow-up. We are currently treating the patient for degenerative disc disease of lumbar spine with lumbar radiculopathy symptoms. Today the patient rates her pain a 4 out of 10. She states the pain is in her low back that radiates into her lower extremities. She describes this as a achy sensation that is worse with increased activity. Patient states since around October she has had more ankle/calf cramping/burning sensations frequently at night. Patient also states she feels like she has decreased sensation in her bilateral feet. Patient does have a history of restless leg syndrome and is on Requip 4 mg. At the last visit patient did have x-rays of her left hip and lumbar spine. Patient is currently managed with a spinal cord stimulator. Patient states she did contact them back in October however the medical customer service representative did not feel like her symptoms were related to her spinal cord stimulator. Patient is also managed with an intrathecal pain pump of Dilaudid 7 mg/mL with a daily dose of 0.8018 mg/day. Patient denies any side effects from this medication. She states this medication does adequately help manage her pain. Patient has seen physical therapy in the past however this made her symptoms worse. Patient does think a lot of her hip pain is related to her arthritis. Patient does use a mobile chair and cane for ambulation. Patient was previously trying to get a motorized scooter to ambulate outside her home however at this time has not gotten this device. Patient is also O2 dependent. Her Ati is [id number]. Its been reviewed and appropriate. Review of Systems: General: No recent weight changes, no fever, no sleep disturbances Respiratory: No cough, no shortness of air, no recurring pulmonary infections Cardiovascular/peripheral vascular: No chest pain, no palpitations, no edema, no shortness of breath Gastrointestinal: No new onset incontinence, normal bowel movements reported Genitourinary: No new onset incontinence Musculoskeletal: Low back pain, bilateral leg pain Psychiatric: [Normal mood/affect] Neurological: [Denies weakness in extremities], [denies balance issues] Objective:: Physical Exam: General: Alert and oriented x3, no acute distress, pleasant and cooperative Lungs: Respirations even and unlabored, symmetrical chest expansion Eyes: PERRL Musculoskeletal: Flexion and extension of lumbar [spine] somewhat guarded secondary to pain, [antalgic gait noted] Neurological: Speech clear, no gross sensory deficit Assessment:: Degenerative disc disease of lumbar spine with lumbar radiculopathy symptoms Plan:: Patient continues to have significant pain in her low back that radiates into her lower extremities with frequent cramping/burning sensations in her bilateral ankles/calves. I will contact [employer] medical customer service representative today to reprogram this patient's spinal cord stimulator. I have also discussed with the patient that she may need to be started on a medication such as gabapentin or pregabalin for possible neuropathy however at this time we will wait and follow-up with her after her reprogramming. Patient will return to clinic in 1 month for reevaluation of symptoms and follow-up. Patient has been instructed to contact the clinic with any concerns before the next appointment. Dr. Wade has reviewed this note and agrees with this plan of care. This note was dictated using voice recognition software and make contain errors or omissions. -- It Is medically necessary for this patient to continue to have their intrathecal pump refilled at regular intervals. This patient had an intrathecal pain pump implanted after meeting criteria of chronic intractable pain for greater than 3 months and failing conservative treatments. Patient has committed and been compliant to the treatment plan and all planned follow up care. Since implantation of the intr
== END ==
PROVIDERS: Visit Provider Nurse Practitioner Family
DX: M51.16 Intervertebral disc disorders with radiculopathy, lumbar region (principal); Z79.899 Other long term (current) drug therapy; Z72.0 Tobacco use
CPT/HCPCS: 99212; G0463

== ENCOUNTER → 2022-10-01 13:09 | Outpatient (POV) | payer MEDICARE, MEDICAID, SELFPAY ==
[2022-10-01 13:45] VITALS: BP 115/78; PULSE 96; RESP 20; O2SAT 96; BMI 32.1
--- NOTE | 2022-10-01 14:40 | EXP.PAIN.SOA ---
[facility] Pain Management SOAP Note Subjective:: Patient is a pleasant 66-year-old female who presents today for follow-up. We are currently treating the patient for degenerative disc disease of lumbar spine with lumbar radiculopathy symptoms. Today she rates her pain a 4 out of 10. Patient denies any new trauma or injury. Patient states she has been having some burning around her intrathecal pump however this is only with certain positions and goes away very quickly. She is currently managed with Dilaudid 7 mg/mL with a daily dose of 0.8018 mg/day. Patient denies any side effects from this medication. She states overall this medication has done well. Patient also has a spinal cord stimulator in place and was recently reprogrammed and states that this is provided significant improvement. Patient does use a cane for ambulation. Patient states that she is trying to get a motorized wheelchair approved through her insurance. Patient is O2 dependent. Patient states recently her doctor did start her on gabapentin 100 mg daily however she states she was not able to tolerate this medication due to the adverse side effects. Patient states she felt out of it and not like herself. Her Tai is [id number]. Its been reviewed and appropriate. Review of Systems: General: No recent weight changes, no fever, no sleep disturbances Respiratory: No cough, no shortness of air, no recurring pulmonary infections Cardiovascular/peripheral vascular: No chest pain, no palpitations, no edema, no shortness of breath Gastrointestinal: No new onset incontinence, normal bowel movements reported Genitourinary: No new onset incontinence Musculoskeletal: Low back pain Psychiatric: [Normal mood/affect] Neurological: [Denies weakness in extremities], [denies balance issues] Objective:: Physical Exam: General: Alert and oriented x3, no acute distress, pleasant and cooperative Lungs: Respirations even and unlabored, symmetrical chest expansion Eyes: PERRL Musculoskeletal: Flexion and extension of lumbar [spine] somewhat guarded secondary to pain, [antalgic gait noted] Neurological: Speech clear, no gross sensory deficit ORT score updated with low risk Assessment:: Degenerative disc disease of lumbar spine with lumbar radiculopathy symptoms Plan:: Patient states she is doing well following her spinal cord stimulator reprogram in combination with her intrathecal pain pump medication. Patient is a at home [facility] refill client. I will order the patient a compounding cream. Patient was negative for any pain or tenderness around her pump site with palpation during today's visit. She will return to clinic in 6 months for reevaluation of symptoms and follow-up. Patient has been instructed to contact the clinic with any concerns before the next appointment. Dr. Wade has reviewed this note and agrees with this plan of care. This note was dictated using voice recognition software and make contain errors or omissions. -- It Is medically necessary for this patient to continue to have their intrathecal pump refilled at regular intervals. This patient had an intrathecal pain pump implanted after meeting criteria of chronic intractable pain for greater than 3 months and failing conservative treatments. Patient has committed and been compliant to the treatment plan and all planned follow up care. Since implantation of the intrathecal pain pump, the patient has had decreased pain and been more functional. Oral medications have been reduced including intake of oral opioids. Patient continues to do well with intrathecal therapy with decrease in pain symptoms and increase in functional status. Stopping intrathecal medications can lead to life threatening withdrawal, seizures, cardiac arrest, severe pain, and possible . Pumps that are not refilled at regular intervals can be damages and cause and need for replacement. We continually titrate dose and concentration to optimize pain relief and function. We are l
== END ==
PROVIDERS: PCP Family Medicine; Visit Provider Nurse Practitioner Family
DX: M51.16 Intervertebral disc disorders with radiculopathy, lumbar region (principal)
CPT/HCPCS: 99212; G0463

== ENCOUNTER → 2022-10-01 14:16 | Outpatient (CLI) | payer MEDICARE, MEDICAID, SELFPAY ==
[2022-10-01 16:03] LABS: Amphetamine/Metha Screen,Urine Negative ng/ml (<1000); Barbiturates Screen,Urine Negative ng/ml (<200); Benzodiazepines Screen,Urine Negative ng/ml (<200); Cannabinoid Screen,Urine Negative ng/ml (<50); Cocaine Screen,Urine Negative ng/ml (<300); Methadone Screen,Urine Negative ng/ml (<300); Opiate Screen,Urine Negative ng/ml (<300); Phencyclidine Screen,Urine Negative ng/ml (<25)
[2022-10-12 08:10] LABS: Codeine Negative (Cutoff=100); Hydrocodone Negative (Cutoff=100); Hydromorphone Positive (.); Morphine Negative (Cutoff=100); Opiates Positive (.)
== END ==
LOC: LAB 14:18
PROVIDERS: Nurse Practitioner Family; PCP Family Medicine; Visit Provider Anesthesiology
DX: Z79.891 Long term (current) use of opiate analgesic (principal)
CPT/HCPCS: 80305; 80361; 80365; 99212; G0463; G0480

== ENCOUNTER → 2023-04-01 12:44 | Outpatient (POV) | payer MEDICARE, MEDICAID, SELFPAY ==
[2023-04-01 14:11] VITALS: BP 144/50; PULSE 91; RESP 18; O2SAT 93; BMI 34.5
--- NOTE | 2023-04-01 14:18 | EXP.PAIN.SOA ---
[facility] Pain Management SOAP Note Subjective:: Patient is a pleasant 67-year-old female who presents today for 6-month follow-up. We are currently treating the patient for degenerative disc disease of lumbar spine with lumbar radiculopathy symptoms. Today she rates her pain a 3 out of 10. Patient denies any recent trauma or injury however she states she continues to have significant pain in her low back down into her hips as well as her knees. Patient does describe this as a aching sensation that is worse with increased activity. Patient also states that she has pain into her hands and feels like they are swollen related to her osteoarthritis. Patient states that she was previously told that there was some procedure that could remove some of the oversized joints in her hands. She states this is the main reason that she is seeing us today. Patient also has questions regarding getting a prescription for a electronic scooter. Patient is O2 dependent. She is currently managed with Dilaudid 7 mg/mL with a daily dose of 0.8018 mg/day. Patient denies any side effects from that medication. Her Tai is [id number]. Its been reviewed and appropriate. Review of Systems: General: No recent weight changes, no fever, no sleep disturbances Respiratory: No cough, no shortness of air, no recurring pulmonary infections Cardiovascular/peripheral vascular: No chest pain, no palpitations, no edema, no shortness of breath Gastrointestinal: No new onset incontinence, normal bowel movements reported Genitourinary: No new onset incontinence Musculoskeletal: Low back pain, hip pain, knee pain, hand pain Psychiatric: [Normal mood/affect] Neurological: [Denies weakness in extremities], [denies balance issues] Objective:: Physical Exam: General: Alert and oriented x3, no acute distress, pleasant and cooperative Lungs: Respirations even and unlabored, symmetrical chest expansion Eyes: PERRL Musculoskeletal: Flexion and extension of lumbar [spine] somewhat guarded secondary to pain, [antalgic gait noted] Neurological: Speech clear, no gross sensory deficit Assessment:: Degenerative disc disease of lumbar spine with lumbar radiculopathy symptoms, low back pain, bilateral hip pain, bilateral knee pain, bilateral hand pain Plan:: Patient is experiencing significant pain at multiple joints with limited range of motion of her lumbar spine. I have discussed with the patient that she may benefit from injective therapy however she states she had this previously at multiple sites and over time these injections became less effective. I have also discussed with the patient that we could always give her a small increase of her intrathecal medication however she states that does typically cause her to feel a little nauseated and not like herself for the first little bit following the adjustment. I have counseled the patient and explained that we do not do any operating procedures on hands to remove nodules and that I can send her for referral for an orthopedic doctor in her area. She would like for us to do this. I have also explained to the patient that we recommend her go through her primary care doctor for help with getting a motorized scooter. Patient will return to clinic in 6 months for reevaluation of symptoms and plan of care. Patient has been instructed to contact the clinic with any concerns before the next appointment. Dr. Wade has reviewed this note and agrees with this plan of care. This note was dictated using voice recognition software and make contain errors or omissions. -- It Is medically necessary for this patient to continue to have their intrathecal pump refilled at regular intervals. This patient had an intrathecal pain pump implanted after meeting criteria of chronic intractable pain for greater than 3 months and failing conservative treatments. Patient has committed and been compliant to the treatment plan and all planned follow up care. Since implantation of the intrathec
== END ==
LOC: SC.PAIN 12:45
PROVIDERS: PCP Family Medicine; Visit Provider Nurse Practitioner Family
DX: M51.16 Intervertebral disc disorders with radiculopathy, lumbar region (principal); M25.551 Pain in right hip; M25.552 Pain in left hip; M25.561 Pain in right knee; M25.562 Pain in left knee; M79.641 Pain in right hand; M79.642 Pain in left hand; Z97.8 Presence of other specified devices
CPT/HCPCS: 99212; G0463

== ENCOUNTER 2023-10-25 10:13 | Outpatient (POV) | payer MEDICARE, MEDICAID, SELFPAY ==
[2023-10-25 10:55] VITALS: BP 163/72; PULSE 97; RESP 18; BMI 37.8
--- NOTE | 2023-10-25 10:59 | A.OFFVIS_ITS ---
[facility] Pain Management SOAP Note Subjective:: Patient is a pleasant 67-year-old female who presents today for 6-month follow- up. We are currently treating the patient for degenerative disc disease of lumbar spine with lumbar radiculopathy symptoms. Today she rates her pain a 5 out of 10. Patient states from our last visit she did have another fall. Patient states that it was not significant or worries that she did anything like a broken bone. She does state that when she gets outside [place] and she cannot take her power chair that she has currently and so frequently she will have falls outside. Patient does present today with using a cane for help with ambulation. She does also state that last she did hand while fixing dinner. She states that she did go to the [facility] however they stated they did not have any open appointments and that she could go to the ER. She states that she ended up just going back home applying some skin adhesive and a butterfly Band-Aid and does present today with it wrapped up in a Coban. Patient is requesting if I can look at this and make sure it looks okay. Christiano wheeler is currently managed with Dilaudid 7 mg/mL with a daily dose of 0.8018 mg/day. She denies any side effects from this medication. Her Tai has been reviewed and is appropriate. Review of Systems: General: No recent weight changes, no fever, no sleep disturbances Respiratory: No cough, no shortness of air, no recurring pulmonary infections Cardiovascular/peripheral vascular: No chest pain, no palpitations, no edema, no shortness of breath Gastrointestinal: No new onset incontinence, normal bowel movements reported Genitourinary: No new onset incontinence Musculoskeletal: Low back pain Psychiatric: [Normal mood/affect] Neurological: [Denies weakness in extremities], [denies balance issues] Objective:: Physical Exam: General: Alert and oriented x3, no acute distress, pleasant and cooperative Lungs: Respirations even and unlabored, symmetrical chest expansion Eyes: PERRL Musculoskeletal: Flexion and extension of lumbar [spine] somewhat guarded secondary to pain, [antalgic gait noted] Neurological: Speech clear, no gross sensory deficit Assessment:: Degenerative disc disease of lumbar spine with lumbar radiculopathy symptoms Plan:: Patient's on her left hand is approximately 1 mm in size and does appear clean, dry with minimal serosanguineous drainage noted on her gauze. I have counseled the patient that it does look fine. She does have some ecchymosis to the left hand around this area. I have counseled the patient if she continues to have pain for longer than the next week or so to let our office know if we need to order x-ray imaging to confirm no other damage was done. Patient did state that she had been having a little bit more leg pain and I have discussed with the patient that she may benefit from injections. Patient has had these in the past however they were very short-lived. We will continue to monitor this at future visits. Patient will return to clinic in 6 months for reevaluation of symptoms and plan of care. Patient is a [facility] home refill client. Patient has been instructed to contact the clinic with any concerns before the next appointment. Dr. Wade has reviewed this note and agrees with this plan of care. This note was dictated using voice recognition software and make contain errors or omissions. -- It Is medically necessary for this patient to continue to have their intrathecal pump refilled at regular intervals. This patient had an intrathecal pain pump implanted after meeting criteria of chronic intractable pain for greater than 3 months and failing conservative treatments. Patient has committed and been compliant to the treatment plan and all planned follow up care. Since implantation of the intrathecal pain pump, the patient has had decreased pain and been more functional. Oral medications have been reduced including intake of oral opioids. Patient continues to do well with intrathecal therapy with decrease in pain symptoms and increase in functional status. Stopping intrathecal medications can lead to life threatening withdrawal, seizures, cardiac arrest, severe pain, and possible . Pumps that are not refilled at regular intervals can be damages and cause and need for replacement. We continually titrate dose and concentration to optimize pain relief and function. We are limited in concentration for certain drugs to safely deliver medications through the pump and stay within the recommendations from the Polyanalgesic Consensus Committee Guidelines. Depending on dose and concentration these pumps may need to be refilled sooner than 3 months as we titrate. [facility] Disclaimer: The information contained in this section may have been updated after the patient was seen, as this information can be updated by other users. Social History Smoking Status: Current every day smoker tobacco type: cigarettes packs per day: 1 second hand exposure: Yes alcohol intake: never substance use type: denies use current occupational status: retired Travel in the last 8 weeks: None household members: spouse housing: house current occupational exposures/hazards: No caffeine: Yes
== END 2023-10-25 23:59 ==
PROVIDERS: PCP Family Medicine; Visit Provider Nurse Practitioner Family
DX: M51.16 Intervertebral disc disorders with radiculopathy, lumbar region (principal); Z97.8 Presence of other specified devices
CPT/HCPCS: 99212; G0463

== ENCOUNTER 2024-06-16 12:35 | Day surgery (SDC) | payer MEDICARE, MEDICAID, SELFPAY ==
[2024-06-16 13:06] VITALS: BP 133/69; PULSE 101; RESP 18; TEMP 36.4; O2SAT 91; BMI 34.5
[2024-06-16 13:09] VITALS: BP 165/80; PULSE 91; RESP 18; O2SAT 96
[2024-06-16 13:11] VITALS: BP 165/80; PULSE 91; RESP 18; O2SAT 96
--- NOTE | 2024-06-16 13:33 | P.PCN_ITS ---
Procedure Date: 06/16/24 Time: 13:15 Anesthesiologist:: Azucena Wade APRN Complications:: None Pre-procedure Diagnosis:: Degenerative disc disease of lumbar spine with lumbar radiculopathy symptoms Post-procedure Diagnosis:: Same Indications for Procedure:: Patient is a pleasant 68-year-old female who presents today for intrathecal refill and reprogram. Today she rates her pain a 4 out of 10. Patient denies any new changes from her last visit. Patient does state that she still has been experiencing significant joint swelling in her right hand related to the fall that she had earlier this year back around September. She states she continues to have difficulty bending the ring finger and does have trouble performing ADLs due to this pain. Patient is currently managed with Dilaudid 7 mg/mL with a daily dose of 0.8018 mg/day. She denies any side effects from this medication. She does state that it is still helping. She does state that she needs refills on her compounded cream. Patient does state from her last visit our conversation regarding having imaging done in her hands related to the fall that she would like to proceed forward with this plan of care. Patient would like to do this a little bit later because the drive is a lot harder on her and she cannot turn around and do the imaging. Her Tai has been reviewed and is appropriate. Physical Exam: General: Alert and oriented x3, no acute distress, pleasant and cooperative Lungs: Respirations even and unlabored, symmetrical chest expansion Eyes: PERRL Musculoskeletal: Flexion and extension of lumbar [spine] somewhat guarded secondary to pain, [antalgic gait noted] Neurological: Speech clear, no gross sensory deficit Procedure Details:: Informed consent was obtained and the risk and benefits of the procedure were explained to the patient. The patient was taken to the procedure room where noninvasive monitoring was placed including noninvasive blood pressure cuff and pulse oximeter. Patient's pump was interrogated. The area over the pump was cleansed with chlorhexidine as a cleansing solution. In sterile fashion the pump was accessed with a 22-gauge needle. Approximately 10 mls of the pump solution was removed and discarded appropriately. The pump was then refilled with 20 mL's of Dilaudid 7 mg/mL. The needle was withdrawn and a bandage was placed over the puncture site. The infusion rate was reprogrammed and continued at 0.8 018 mg/day. The patient tolerated well with no complication. Plan and Disposition:: Patient tolerated her intrathecal refill and reprogram with no complications and was discharged neurologically intact. I did discuss the x-ray imaging of her right hand for the ring finger swelling and limited movement. We will proceed forward with this imaging. Patient is stating that she would like to have it done at [facility] in [place]. Patient is being sent with a order at today's appointment. I will also refill the patient's compounded cream. Patient will return to clinic on or before her next intrathecal refill and reprogram. We will see the patient back in the clinic at the next intrathecal refill. Patient has been instructed to contact the clinic with any concerns before the next appointment. Dr. Wade has reviewed this note and agrees with this plan of care. This note was dictated using voice recognition software and make contain errors or omissions. -- It Is medically necessary for this patient to continue to have their intrathecal pump refilled at regular intervals. This patient had an intrathecal pain pump implanted after meeting criteria of chronic intractable pain for greater than 3 months and failing conservative treatments. Patient has committed and been compliant to the treatment plan and all planned follow up care. Since implantation of the intrathecal pain pump, the patient has had decreased pain and been more functional. Oral medications have been reduced including intake of oral opioids. Patient continues to do well with intrathecal therapy with decrease in pain symptoms and increase in functional status. Stopping intrathecal medications can lead to life threatening withdrawal, seizures, cardiac arrest, severe pain, and possible . Pumps that are not refilled at regular intervals can be damages and cause and need for replacement. We continually titrate dose and concentration to optimize pain relief and function. We are limited in concentration for certain drugs to safely deliver medications through the pump and stay within the recommendations from the Polyanalgesic Consensus Committee Guidelines. Depending on dose and concentration these pumps may need to be refilled sooner than 3 months as we titrate.
[2024-06-16 13:42] VITALS: BP 131/68; PULSE 87; RESP 18; O2SAT 95
== END 2024-06-16 13:45 | disposition home or self-care (01) ==
PROVIDERS: PCP Family Medicine; Visit Provider Nurse Practitioner Family
DX: M51.16 Intervertebral disc disorders with radiculopathy, lumbar region (principal)
CPT/HCPCS: 62370

== ENCOUNTER 2024-09-15 10:28 | Day surgery (SDC) | payer MEDICARE, MEDICAID, SELFPAY ==
[2024-09-15 10:45] VITALS: BP 178/88; PULSE 117; RESP 16; TEMP 36.8; O2SAT 90; BMI 34.5
--- NOTE | 2024-09-15 10:49 | P.PCN_ITS ---
Procedure Date: 09/15/24 Time: 11:20 Anesthesiologist:: Azucena Wade APRN Complications:: None Pre-procedure Diagnosis:: Degenerative disc disease of lumbar spine with lumbar radiculopathy symptoms Post-procedure Diagnosis:: Same Indications for Procedure:: Patient is a pleasant 68-year-old female who presents today for intrathecal refill and reprogram. Today she rates her pain 6 out of 10. She denies any new injury or trauma. She does state from our last visit she was unable to complete her x-ray imaging order. We had ordered x-ray imaging of her right hand and right finger due to a fall where she tried to catch herself with her hand. She states that it is still giving her issues and she would like to try and get these x-ray imagings completed today. She is asking for a new order. Patient does state that she has used the compounded cream however felt like it was not strong enough. Patient does also make mention that she has been experiencing worsening pain in her left buttocks and hip area as well as left knee and left ankle. Patient states she just feels like at different times it wants to give out or go out of place at the knee and that she has difficulty walking. Patient states the pain is very bothersome and she is asking if there is anything that can be done for this. Patient is currently managed with Dilaudid 7 mg/mL with a daily dose of 0.8018 mg/day. She denies any side effects from this medication. She is prescribed compounded cream from our office. Her Tai has been reviewed and is appropriate. Physical Exam: General: Alert and oriented x3, no acute distress, pleasant and cooperative Lungs: Respirations even and unlabored, symmetrical chest expansion Eyes: PERRL Musculoskeletal: Flexion and extension of lumbar [spine] somewhat guarded secondary to pain, [antalgic gait noted] point tenderness along bilateral greater trochanteric bursas and left piriformis muscle Neurological: Speech clear, no gross sensory deficit Procedure Details:: Informed consent was obtained and the risk and benefits of the procedure were explained to the patient. The patient had noninvasive monitoring placed including noninvasive blood pressure cuff and pulse oximeter. Patient's pump was interrogated. The area over the pump was cleansed with chlorhexidine as a cleansing solution. In sterile fashion the pump was accessed with a 22-gauge needle. Approximately 9.8 mls of the pump solution was removed and discarded appropriately. The pump was then refilled with 20 mL's of Dilaudid 7 mg/mL. The needle was withdrawn and a bandage was placed over the puncture site. The infusion rate was reprogrammed and continued at Dilaudid 0.8018 mg/day. The patient tolerated well with no complication. Plan and Disposition:: Patient tolerated the procedure well with no complications and was discharged neurologically intact. I did discuss with the patient that I will send in a new order for her right wrist and right hand of x-ray imaging to rule out any fractures from the previous fall. I will also order a stronger dosage of the compounded cream. Patient was counseled regarding her pain that she is experiencing more prominent all along the left side that she may benefit from injections such as lumbar epidural or left piriformis injection or bilateral her bursa injection. Patient did have point tenderness on her bilateral greater trochanteric bursa's and left piriformis muscle during today's exam. Patient does state due to the fact that she is driving a distance in the car rides really aggravate her she would like to think on this. Patient was counseled just to let her office know if she would like to proceed forward. patient will return to clinic on or before their next intrathecal refill date. We will see the patient back in the clinic at the next intrathecal refill. Patient has been instructed to contact the clinic with any concerns before the next appointment. Dr. Wade has reviewed this note and agrees with this plan of c are. This note was dictated using voice recognition software and make contain errors or omissions. -- It Is medically necessary for this patient to continue to have their intrathecal pump refilled at regular intervals. This patient had an intrathecal pain pump implanted after meeting criteria of chronic intractable pain for greater than 3 months and failing conservative treatments. Patient has committed and been compliant to the treatment plan and all planned follow up care. Since implantation of the intrathecal pain pump, the patient has had decreased pain and been more functional. Oral medications have been reduced including intake of oral opioids. Patient continues to do well with intrathecal therapy with decrease in pain symptoms and increase in functional status. Stopping intrathec al medications can lead to life threatening withdrawal, seizures, cardiac arrest, severe pain, and possible . Pumps that are not refilled at regular intervals can be damages and cause and need for replacement. We continually titrate dose and concentration to optimize pain relief and function. We are limited in concentration for certain drugs to safely deliver medications through the pump and stay within the recommendations from the Polyanalgesic Consensus Committee Guidelines. Depending on dose and concentration these pumps may need to be refilled sooner than 3 months as we titrate. A UDS is needed to verify patient's compliance with our office pain contract. This is ordered based off specific treatments related to chronic pain with the potential to abuse certain medications.
[2024-09-15 11:30] VITALS: BP 153/77; PULSE 114; RESP 16; O2SAT 93
--- NOTE | 2024-09-15 11:43 | XR_ITS ---
FINAL REPORT CLINICAL HISTORY: PAIN from fall COMPARISON: None FINDINGS: RIGHT WRIST Three views demonstrate no acute fracture or dislocation. There is 4 mm of ulnar negative variance. Degenerative cyst is noted at the lateral aspect of the distal ulna. There is moderately advanced osteoarthritis of the basilar joint. Tendon anchors at the base of the 1st and 2nd metacarpals. The soft tissues are unremarkable. IMPRESSION: No acute bony abnormality. Reviewed, Interpreted and Dictated by Cordell Roe MD Transcribed by Ximena Julio Authenticated and . [facility]
--- NOTE | 2024-09-15 11:43 | XR_ITS ---
FINAL REPORT CLINICAL HISTORY: pain from fall COMPARISON: None FINDINGS: RIGHT HAND Three views demonstrate no acute fracture or dislocation. There is 4 mm of ulnar negative variance. Degenerative cyst is noted at the lateral aspect of the distal ulna. There is moderately advanced osteoarthritis of the basilar joint. Tendon anchors at the base of the 1st and 2nd metacarpals. There are advanced changes of osteoarthritis particularly at the 2nd and 3rd DIP joints and 4th and 5th PIP joints. The soft tissues are unremarkable. IMPRESSION: No acute bony abnormality. Reviewed, Interpreted and Dictated by Cordell Roe MD Transcribed by Ximena Julio Authenticated and [facility]
== END 2024-09-15 11:30 | disposition home or self-care (01) ==
PROVIDERS: PCP Family Medicine; Visit Provider Nurse Practitioner Family
DX: M51.16 Intervertebral disc disorders with radiculopathy, lumbar region (principal); M79.641 Pain in right hand; M25.531 Pain in right wrist
CPT/HCPCS: 62370; 73110; 73130; 99212; G0463

== ENCOUNTER 2024-12-15 11:36 | Day surgery (SDC) | payer MEDICARE, MEDICAID, SELFPAY ==
[2024-12-15 11:46] VITALS: BP 142/61; PULSE 100; RESP 16; TEMP 37.1; O2SAT 92; BMI 36.4
--- NOTE | 2024-12-15 11:50 | EXP.HP ---
History of Present Illness *Admission Date: 12/15/24 *Reason for visit:: Intrathecal refill, DDD *History of present illness: Degenerative disc disease [facility] Disclaimer: The information contained in this section may have been updated after the patient was seen, as this information can be updated by other users. Medical History Hypothyroid GERD (gastroesophageal reflux disease) Social History Smoking Status: Current every day smoker tobacco type: cigarettes packs per day: 1 second hand exposure: Yes alcohol intake: never substance use type: denies use current occupational status: retired Travel in the last 8 weeks: None household members: spouse housing: house current occupational exposures/hazards: No caffeine: Yes Have you lived/traveled outside [place] in past 30 days?: No Contact w/someone who lives/traveled outside [place] past 30 days?: No Exposure to someone with infectious disease in past 14 days?: No Do you have a fever (greater than 100.4 F or 38 C)?: No Have you tested positive for COVID-19: No Exposed to someone with COVID-19 in past 14 days?: No Do you have a sore throat?: No Do you have a cough?: No Do you have any weakness?: No Do you have any diarrhea?: No Are you experiencing any unusual bleeding?: No Do you have any muscle aches/pain?: No Do you have any abdominal pain?: No Are you experiencing loss of taste or smell?: No Other Medical History Have you received the Flu Vaccine for this season: No Have you received the Pneumonia Vaccine: No Review of Systems Review of Systems Review of systems:: pertinent systems reviewed and negative unless documented below Review of systems (narrative): Review of Systems: General: No recent weight changes, no fever, no sleep disturbances Respiratory: No cough, no shortness of air, no recurring pulmonary infections Cardiovascular/peripheral vascular: No chest pain, no palpitations, no edema, no shortness of breath Gastrointestinal: No new onset incontinence, normal bowel movements reported Genitourinary: No new onset incontinence Musculoskeletal: Chronic back pain Psychiatric: [Normal mood/affect] Neurological: [Denies weakness in extremities], [denies balance issues] Constitutional Constitutional: Reports system reviewed and no additional complaints, except as documented Meds Home Medications and Allergies Home Medications ?Medication ?Instructions ?Recorded ?Confirmed ?Type albuterol sulfate 90 mcg/actuation 1 - 2 puffs inhalation Q4-6H PRN 03/01/18 12/15/24 History aerosol inhaler (Ventolin HFA) Shortness Of Breath Or Wheezing atorvastatin 20 mg tablet 20 mg PO DAILY Cholesterol 03/01/18 12/15/24 History chlorzoxazone 500 mg tablet 500 mg PO TID muscle spasms 03/01/18 12/15/24 History dicyclomine 10 mg capsule 0 mg PO QID abd cramping 03/01/18 12/15/24 History ipratropium bromide 17 1 puff inhalation NEEDED PRN 03/01/18 12/15/24 History mcg/actuation HFA aerosol inhaler Shortness Of Breath (Atrovent HFA) isosorbide mononitrate 30 mg 30 mg PO DAILY blood pressure 03/01/18 12/15/24 History tablet,extended release 24 hr levocetirizine 5 mg tablet 5 mg PO QPMWM Allergy symptoms 03/01/18 12/15/24 History levothyroxine 125 mcg tablet 125 mcg PO DAILY hypothyroid 03/01/18 12/15/24 History losartan 25 mg tablet 25 mg PO DAILY blood pressure 03/01/18 12/15/24 History montelukast 10 mg tablet 10 mg PO PM allergies 03/01/18 12/15/24 History pantoprazole 40 mg tablet,delayed 40 mg PO BID GERD 03/01/18 12/15/24 History release ropinirole 4 mg tablet (Requip) 4 mg PO QPMWM rls 03/01/18 12/15/24 History sertraline 100 mg tablet (Zoloft) 100 mg PO DAILY mood 03/01/18 12/15/24 History hydromorphone (PF) 1 mg/mL 0.8 mg IV CONT Pain 10/01/22 12/15/24 History injection syringe (Dilaudid (PF)) New Prescriptions to Start Prescriptions: Allergies Allergy/AdvReac Type Severity Reaction Status Date / Time cefdinir Allergy Unknown Verified 01/13/21 13:41 levofloxacin (From Levaquin) Allergy Unknown Verified 01/13/21 13:41 Penicillins Allergy Unknown Verified 01/13/21 13:41 morphine Allergy Verified 01/13/21 13:41 Exam Data for Last 24 hours Vital signs and Labs for Last 24 Hours: Temp Pulse Resp BP Pulse Ox O2 Del Method O2 Flow Rate 98.7 F 100 H 16 142/61 H 92 L Nasal Cannula 2 12/15/24 11:46 12/15/24 11:46 12/15/24 11:46 12/15/24 11:46 12/15/24 11:46 12/15/24 11:46 12/15/24 11:46 I & O for Last 24 hours: Intake & Output 12/12/24 12/13/24 12/14/24 12/15/24 23:59 23:59 23:59 23:59 Weight 193 lb Constitutional Constitutional: no acute distress *Routine HEENT Exam Head: Present normocephalic and atraumatic Eye: Present PERRL ENT: Present mucous membranes moist *Routine Neck Exam Neck: Present supple *Routine Respiratory Exam Respiratory: Present CTA bilaterally *Routine Cardiovascular Exam Cardiovascular: Present RRR *Routine Abdominal Exam Abdominal: Present soft *Routine Rectal Exam Rectal:: deferred *Routine Genitalia Exam Genitalia:: normal female Routine Back/Spine/Pelvis Exam Back/Spine: Present pain with flexion *Routine Neurological Exam Neurological: Present alert and oriented X3 Routine Psychiatric Exam Psychiatric: Present normal affect Assessment and Plan *Assessment and plan (1) Lumbar radiculopathy: Status: Suspected Category: Medical Code(s): M54.16 - Radiculopathy, lumbar region (2) Degenerative disc disease: Status: Chronic Category: Medical Plan Patient has been instructed to contact the clinic with any concerns before the next appointment. Dr. Wade has reviewed this note and agrees with this plan of care. This note was dictated using voice recognition software and make contain errors or omissions. All injections are used with Lidocaine, Bupivacaine and dexamethasone. Occasionally urine drug screen is needed to verify patient's compliance with our office pain contract. This is ordered based off specific treatments related to chronic pain with the potential to abuse certain medications.
--- NOTE | 2024-12-15 11:52 | P.PCN_ITS ---
Procedure Date: 12/15/24 Time: 12:39 Anesthesiologist:: Azucena Wade APRN Complications:: None Pre-procedure Diagnosis:: Degenerative disc disease of lumbar spine with lumbar radiculopathy symptoms Post-procedure Diagnosis:: Same Indications for Procedure:: Patient is a pleasant 69-year-old female who presents today for intrathecal refill and reprogram. Today she rates her pain a 5 out of 10. Patient does state that she has had a couple of falls since her last appointment with us. S he states that she still has trouble with her knees and her left hip and they just randomly will give out causing her to stumble. Patient does not believe she did anything significant in any of these episodes. Patient is currently managed with intrathecal Dilaudid 7 mg/mL with a daily dose of 0.8018 mg/day. She denies any side effects. Patient would like a small increase if possible. Patient did just have x-ray imaging at her last visit over her right wrist and right hand and would also like to review over this. Her Tai has been reviewed and is appropriate. Physical Exam: General: Alert and oriented x3, no acute distress, pleasant and cooperative Lungs: Respirations even and unlabored, symmetrical chest expansion Eyes: PERRL Musculoskeletal: Flexion and extension of lumbar [spine] somewhat guarded secondary to pain, [antalgic gait noted] Neurological: Speech clear, no gross sensory deficit Procedure Details:: Informed consent was obtained and the risk and benefits of the procedure were explained to the patient. The patient had noninvasive monitoring placed including noninvasive blood pressure cuff and pulse oximeter. Patient's pump was interrogated. The area over the pump was cleansed with chlorhexidine as a cleansing solution. In sterile fashion the pump was accessed with a 22-gauge needle. Approximately 9.8 mls of the pump solution was removed and discarded appropriately. The pump was then refilled with 20 mL's of Dilaudid 7 mg/mL. The needle was withdrawn and a bandage was placed over the puncture site. The infusion rate was reprogrammed and increased 3% to Dilaudid 0.8258 mg/day. The patient tolerated well with no complication. Plan and Disposition:: Patient tolerated the procedure well with no complications and was discharged neurologically intact. I did discuss with the patient in future it may be beneficial for us to order some updated imaging of her knees or her left hip. Patient does believe a lot of it is more arthritis. I did review over her imaging from her wrist in her hand that did show moderately advanced osteoarthritis. Patient was also counseled that if the pain does bother her more significantly and she would like to try injections then that is something we can do at her convenience. Patient does state that she has tried those in the past and they just never really seem to make much difference. We will continue to monitor in future. Patient will return to clinic on or before their next intrathecal refill date. We will see the patient back in the clinic at the next intrathecal refill. Patient has been instructed to contact the clinic with any concerns before the next appointment. Dr. Wade has reviewed this note and agrees with this plan of care. This note was dictated using voice recognition software and make contain errors or omissions. -- It Is medically necessary for this patient to continue to have their intrathecal pump refilled at regular intervals. This patient had an intrathecal pain pump implanted after meeting criteria of chronic intractable pain for greater than 3 months and failing conservative treatments. Patient has committed and been compliant to the treatment plan and all planned follow up care. Since implantation of the intrathecal pain pump, the patient has had decreased pain and been more functional. Oral medications have been reduced including intake of oral opioids. Patient continues to do well with intrathecal therapy with decrease in pain symptoms and increase in functional status. Stopping intrathecal medications can lead to life threatening withdrawal, seizures, cardiac arrest, severe pain, and possible . Pumps that are not refilled at regular intervals can be damages and cause and need for replacement. We continually titrate dose and concentration to optimize pain relief and function. We are limited in concentration for certain drugs to safely deliver medications through the pump and stay within the recommendations from the Polyanalgesic Consensus Committee Guidelines. Depending on dose and concentration these pumps may need to be refilled sooner than 3 months as we titrate. A UDS is needed to verify patient's compliance with our office pain contract. This is ordered based off specific treatments related to chronic pain with the potential to abuse certain medications.
[2024-12-15 12:36] VITALS: BP 131/67; PULSE 91; RESP 18; O2SAT 92
[2024-12-15 12:38] VITALS: BP 131/67; PULSE 91; RESP 18; O2SAT 92
[2024-12-15 12:46] VITALS: BP 121/64; PULSE 92; RESP 16; O2SAT 92
== END 2024-12-15 12:46 | disposition home or self-care (01) ==
PROVIDERS: PCP Family Medicine; Visit Provider Nurse Practitioner Family
DX: M51.16 Intervertebral disc disorders with radiculopathy, lumbar region (principal)
CPT/HCPCS: 62370; 99212; 99221; G0463

== ENCOUNTER 2025-03-16 09:27 | Day surgery (SDC) | payer MEDICARE, MEDICAID, SELFPAY ==
[2025-03-16 09:43] VITALS: BP 121/64; PULSE 61; RESP 18; O2SAT 93; BMI 34.7
[2025-03-16 10:00] VITALS: BP 129/49; PULSE 73; RESP 18; O2SAT 93
[2025-03-16 10:14] VITALS: BP 126/55; PULSE 95; RESP 18; O2SAT 90
--- NOTE | 2025-03-16 10:24 | EXP.PM.HP ---
History of Present Illness *Admission Date: 03/16/25 *Reason for visit:: Intrathecal refill; DDD *History of present illness: Degenerative disc disease [facility] Disclaimer: The information contained in this section may have been updated after the patient was seen, as this information can be updated by other users. Medical History Hypothyroid GERD (gastroesophageal reflux disease) Social History Smoking Status: Current every day smoker tobacco type: cigarettes packs per day: 1 second hand exposure: Yes alcohol intake: never substance use type: denies use current occupational status: retired Travel in the last 8 weeks?: None household members: spouse housing: house current occupational exposures/hazards: No caffeine: Yes Other Medical History Have you received the Flu Vaccine for this season: No Have you received the Pneumonia Vaccine: No Review of Systems Review of Systems Review of systems:: pertinent systems reviewed and negative unless documented below Review of systems (narrative): Review of Systems: General: No recent weight changes, no fever, no sleep disturbances Respiratory: No cough, no shortness of air, no recurring pulmonary infections Cardiovascular/peripheral vascular: No chest pain, no palpitations, no edema, no shortness of breath Gastrointestinal: No new onset incontinence, normal bowel movements reported Genitourinary: No new onset incontinence Musculoskeletal: Chronic back pain Psychiatric: [Normal mood/affect] Neurological: [Denies weakness in extremities], [denies balance issues] Meds Home Medications and Allergies Home Medications ?Medication ?Instructions ?Recorded ?Confirmed ?Type albuterol sulfate 90 mcg/actuation 1 - 2 puffs inhalation Q4-6H PRN 03/01/18 03/16/25 History aerosol inhaler (Ventolin HFA) Shortness Of Breath Or Wheezing atorvastatin 20 mg tablet 20 mg PO DAILY Cholesterol 03/01/18 03/16/25 History chlorzoxazone 500 mg tablet 500 mg PO TID muscle spasms 03/01/18 03/16/25 History dicyclomine 10 mg capsule 0 mg PO QID abd cramping 03/01/18 03/16/25 History ipratropium bromide 17 1 puff inhalation NEEDED PRN 03/01/18 03/16/25 History mcg/actuation HFA aerosol inhaler Shortness Of Breath (Atrovent HFA) isosorbide mononitrate 30 mg 30 mg PO DAILY blood pressure 03/01/18 03/16/25 History tablet,extended release 24 hr levocetirizine 5 mg tablet 5 mg PO QPMWM Allergy symptoms 03/01/18 03/16/25 History levothyroxine 125 mcg tablet 125 mcg PO DAILY hypothyroid 03/01/18 03/16/25 History losartan 25 mg tablet 25 mg PO DAILY blood pressure 03/01/18 03/16/25 History montelukast 10 mg tablet 10 mg PO PM allergies 03/01/18 03/16/25 History pantoprazole 40 mg tablet,delayed 40 mg PO BID GERD 03/01/18 03/16/25 History release ropinirole 4 mg tablet (Requip) 4 mg PO QPMWM rls 03/01/18 03/16/25 History sertraline 100 mg tablet (Zoloft) 100 mg PO DAILY mood 03/01/18 03/16/25 History hydromorphone (PF) 1 mg/mL 0.8 mg IV CONT Pain 10/01/22 03/16/25 History injection syringe (Dilaudid (PF)) New Prescriptions to Start Prescriptions: Allergies Allergy/AdvReac Type Severity Reaction Status Date / Time cefdinir Allergy Unknown Verified 01/13/21 13:41 levofloxacin (From Levaquin) Allergy Unknown Verified 01/13/21 13:41 Penicillins Allergy Unknown Verified 01/13/21 13:41 morphine Allergy Verified 01/13/21 13:41 Exam Data for Last 24 hours Vital signs and Labs for Last 24 Hours: Pulse Resp BP Pulse Ox O2 Del Method O2 Flow Rate 95 H 18 126/55 L 90 L Nasal Cannula 3 03/16/25 10:14 03/16/25 10:14 03/16/25 10:14 03/16/25 10:14 03/16/25 10:14 03/16/25 10:14 I & O for Last 24 hours: Intake & Output 03/13/25 03/14/25 03/15/25 03/16/25 23:59 23:59 23:59 23:59 Weight 184 lb Constitutional Constitutional: no acute distress *Routine HEENT Exam Head: Present normocephalic and atraumatic Eye: Present PERRL ENT: Present mucous membranes moist *Routine Neck Exam Neck: Present supple *Routine Respiratory Exam Respiratory: Present other (Chronic O2 use, nasal cannula) and normal respiratory effort *Routine Cardiovascular Exam Cardiovascular: Present RRR *Routine Abdominal Exam Abdominal: Present soft *Routine Rectal Exam Rectal:: deferred *Routine Genitalia Exam Genitalia:: deferred Routine Back/Spine/Pelvis Exam Back/Spine: Present pain with flexion *Routine Skin Exam Skin: Present intact, dry and warm *Routine Neurological Exam Neurological: Present alert and oriented X3 Routine Psychiatric Exam Psychiatric: Present normal affect and normal thought process Assessment and Plan *Assessment and plan (1) Lumbar radiculopathy: Status: Suspected Category: Medical Code(s): M54.16 - Radiculopathy, lumbar region (2) Degenerative disc disease: Status: Chronic Category: Medical Plan Patient has been instructed to contact the clinic with any concerns before the next appointment. Dr. Wade has reviewed this note and agrees with this plan of care. This note was dictated using voice recognition software and make contain errors or omissions. All injections are used with Lidocaine, Bupivacaine and dexamethasone. Occasionally urine drug screen is needed to verify patient's compliance with our office pain contract. This is ordered based off specific treatments related to chronic pain with the potential to abuse certain medications.
--- NOTE | 2025-03-16 10:26 | EXP.PAIN.PRO ---
Procedure Date: 03/16/25 Time: 10:08 Anesthesiologist:: Azucena Wade APRN Complications:: None Pre-procedure Diagnosis:: Degenerative disc disease of lumbar spine with lumbar radiculopathy symptoms, chronic pain syndrome, osteoarthritis Post-procedure Diagnosis:: Same Indications for Procedure:: Patient is a pleasant 69-year-old female who presents today for intrathecal refill and reprogram. Today she rates her pain at a 4 out of 10. She does state she did have a recent fall however does not feel like she did anything substantial. Patient does states that she feels like a lot of times her legs give out. She does use a cane for help with ambulation and is on continuous O2. Patient is complaining of increased pain in and around her fingers.Patien is asking if there is anything that we can do for this. Patient is currently managed with Dilaudid 7 mg/mL with a daily dose of 0.8258 mg/day. She denies any side effects. Her Tai has been reviewed and is appropriate. Physical Exam: General: Alert and oriented x3, no acute distress, pleasant and cooperative Lungs: Respirations even and unlabored, symmetrical chest expansion Eyes: PERRL Musculoskeletal: Flexion and extension of lumbar [spine] somewhat guarded secondary to pain, [antalgic gait noted] Neurological: Speech clear, no gross sensory deficit Procedure Details:: Informed consent was obtained and the risk and benefits of the procedure were explained to the patient. The patient had noninvasive monitoring placed including noninvasive blood pressure cuff and pulse oximeter. Patient's pump was interrogated. The area over the pump was cleansed with chlorhexidine as a cleansing solution. In sterile fashion the pump was accessed with a 22-gauge needle. Approximately 9.1 mls of the pump solution was removed and discarded appropriately. The pump was then refilled with 20 mL's of Dilaudid 7 mg/mL. The needle was withdrawn and a bandage was placed over the puncture site. The infusion rate was reprogrammed and continued at its current dosage. The patient tolerated well with no complication. Plan and Disposition:: Patient tolerated the procedure well with no complications and was discharged neurologically intact. I did discuss with the patient regarding her hands with the osteoarthritis and its the Heberden's nodules would be something more related to orthopedics. I did discuss with her that we could send a referral to someone close around her area. Patient does state that she will contact her primary care and see if they can send a referral. She does state that she has seen a bone doctor around there in the past. I did discuss with her if she is not able to get a referral for somewhere closer that she can call us back and let us know and we will send a referral. Patient agrees with this plan of care. Patient will return to clinic on or before their next intrathecal refill date. We will see the patient back in the clinic at the next intrathecal refill. Patient has been instructed to contact the clinic with any concerns before the next appointment. Dr. Wade has reviewed this note and agrees with this plan of care. This note was dictated using voice recognition software and make contain errors or omissions. -- It Is medically necessary for this patient to continue to have their intrathecal pump refilled at regular intervals. This patient had an intrathecal pain pump implanted after meeting criteria of chronic intractable pain for greater than 3 months and failing conservative treatments. Patient has committed and been compliant to the treatment plan and all planned follow up care. Since implantation of the intrathecal pain pump, the patient has had decreased pain and been more functional. Oral medications have been reduced including intake of oral opioids. Patient continues to do well with intrathecal therapy with decrease in pain symptoms and increase in functional status. Stopping intrathecal medications can lead to life threatening withdrawal, seizures, cardiac arrest, severe pain, and possible . Pumps that are not refilled at regular intervals can be damages and cause and need for replacement. We continually titrate dose and concentration to optimize pain relief and function. We are limited in concentration for certain drugs to safely deliver medications through the pump and stay within the recommendations from the Polyanalgesic Consensus Committee Guidelines. Depending on dose and concentration these pumps may need to be refilled sooner than 3 months as we titrate. A UDS is needed to verify patient's compliance with our office pain contract. This is ordered based off specific treatments related to chronic pain with the potential to abuse certain medications.
== END 2025-03-16 10:14 | disposition home or self-care (01) ==
LOC: SC.PAIN 09:30
PROVIDERS: PCP Family Medicine; Visit Provider Nurse Practitioner Family
DX: Z45.1 Encounter for adjustment and management of infusion pump (principal); M51.16 Intervertebral disc disorders with radiculopathy, lumbar region; G89.4 Chronic pain syndrome; M19.90 Unspecified osteoarthritis, unspecified site; E03.9 Hypothyroidism, unspecified; K21.9 Gastro-esophageal reflux disease without esophagitis; F17.210 Nicotine dependence, cigarettes, uncomplicated; Z79.890 Hormone replacement therapy; Z79.899 Other long term (current) drug therapy; Z88.1 Allergy status to other antibiotic agents; Z88.5 Allergy status to narcotic agent; Z88.0 Allergy status to penicillin
CPT/HCPCS: 62370

== ENCOUNTER 2025-06-15 09:13 | Day surgery (SDC) | payer MEDICARE, MEDICAID, SELFPAY ==
[2025-06-15 09:24] VITALS: BP 112/65; PULSE 100; RESP 18; O2SAT 89; BMI 34.7
[2025-06-15 11:41] VITALS: BP 161/64; PULSE 89; RESP 20; O2SAT 90
--- NOTE | 2025-06-15 11:56 | EXP.HP ---
History of Present Illness *Admission Date: 06/15/25 *Reason for visit:: Intrathecal pain pump refill *History of present illness: This patient presents for intrathecal pain pump refill. She is doing well with her pump. She does not need any changes. She does have antalgic gait. Motor strength of lower extremities is 5/5. There is no gross sensory deficit. Tai and drug screen are appropriate. Will refill her pump today continue with same dose. [facility] Disclaimer: The information contained in this section may have been updated after the patient was seen, as this information can be updated by other users. Medical History (Updated 06/15/25 @ 11:57 by Davide Wade MD) Hypothyroid GERD (gastroesophageal reflux disease) Social History Smoking Status: Current every day smoker tobacco type: cigarettes packs per day: 1 second hand exposure: Yes alcohol intake: never substance use type: denies use current occupational status: retired Travel in the last 8 weeks?: None household members: spouse housing: house current occupational exposures/hazards: No caffeine: Yes Other Medical History Have you received the Flu Vaccine for this season: No Have you received the Pneumonia Vaccine: No Review of Systems Review of Systems Review of systems:: pertinent systems reviewed and negative unless documented below Meds Home Medications and Allergies Home Medications ?Medication ?Instructions ?Recorded ?Confirmed ?Type albuterol sulfate 90 mcg/actuation 1 - 2 puffs inhalation Q4-6H PRN 03/01/18 06/15/25 History aerosol inhaler (Ventolin HFA) Shortness Of Breath Or Wheezing atorvastatin 20 mg tablet 20 mg PO DAILY Cholesterol 03/01/18 06/15/25 History chlorzoxazone 500 mg tablet 500 mg PO TID muscle spasms 03/01/18 06/15/25 History dicyclomine 10 mg capsule 0 mg PO QID abd cramping 03/01/18 06/15/25 History ipratropium bromide 17 1 puff inhalation NEEDED PRN 03/01/18 06/15/25 History mcg/actuation HFA aerosol inhaler Shortness Of Breath (Atrovent HFA) isosorbide mononitrate 30 mg 30 mg PO DAILY blood pressure 03/01/18 06/15/25 History tablet,extended release 24 hr levocetirizine 5 mg tablet 5 mg PO QPMWM Allergy symptoms 03/01/18 06/15/25 History levothyroxine 125 mcg tablet 125 mcg PO DAILY hypothyroid 03/01/18 06/15/25 History losartan 25 mg tablet 25 mg PO DAILY blood pressure 03/01/18 06/15/25 History montelukast 10 mg tablet 10 mg PO PM allergies 03/01/18 06/15/25 History pantoprazole 40 mg tablet,delayed 40 mg PO BID GERD 03/01/18 06/15/25 History release ropinirole 4 mg tablet (Requip) 4 mg PO QPMWM rls 03/01/18 06/15/25 History sertraline 100 mg tablet (Zoloft) 100 mg PO DAILY mood 03/01/18 06/15/25 History hydromorphone (PF) 1 mg/mL 0.8 mg IV CONT Pain 10/01/22 06/15/25 History injection syringe (Dilaudid (PF)) New Prescriptions to Start Prescriptions: Allergies Allergy/AdvReac Type Severity Reaction Status Date / Time cefdinir Allergy Unknown Verified 01/13/21 13:41 levofloxacin (From Levaquin) Allergy Unknown Verified 01/13/21 13:41 Penicillins Allergy Unknown Verified 01/13/21 13:41 morphine Allergy Verified 01/13/21 13:41 Exam Data for Last 24 hours Vital signs and Labs for Last 24 Hours: Pulse Resp BP Pulse Ox O2 Del Method O2 Flow Rate 89 20 161/64 H 90 L Nasal Cannula 2 06/15/25 11:41 06/15/25 11:41 06/15/25 11:41 06/15/25 11:41 06/15/25 11:41 06/15/25 11:41 I & O for Last 24 hours: Intake & Output 06/12/25 06/13/25 06/14/25 06/15/25 11:59 11:59 11:59 11:59 Weight 184 lb *Routine HEENT Exam Head: Present normocephalic Eye: Present EOMI ENT: Present mucous membranes moist *Routine Respiratory Exam Respiratory: Present CTA bilaterally *Routine Cardiovascular Exam Cardiovascular: Present Normal S1 and Normal S2 *Routine Abdominal Exam Abdominal: Present soft *Routine Rectal Exam Rectal:: deferred *Routine Genitalia Exam Genitalia:: deferred Assessment and Plan *Assessment and plan (1) Degenerative disc disease: Status: Chronic Qualifiers: Spinal region: lumbar Disc-related pain type: discogenic back pain and lower extremity pain Qualified Code(s): M51.362 - Other intervertebral disc degeneration, lumbar region with discogenic back pain and lower extremity pain Category: Medical (2) Lumbar radiculopathy: Status: Suspected Category: Medical Code(s): M54.16 - Radiculopathy, lumbar region Plan Refill of intrathecal pain pump.
[2025-06-15 12:02] VITALS: BP 143/63; PULSE 101; RESP 18; O2SAT 88
--- NOTE | 2025-06-15 12:55 | P.PCN_ITS ---
Procedure Date: 06/15/25 Time: 12:55 Anesthesiologist:: Davide Wade MD Complications:: None Pre-procedure Diagnosis:: Degenerative disease of lumbar spine with lumbar radiculopathy symptoms Post-procedure Diagnosis:: Same Indications for Procedure:: This patient is a pleasant 69-year-old white female who we are treating for degenerative disease of lumbar spine with lumbar radiculopathy symptoms. She is doing well with her intrathecal hydromorphone pain pump. She does have a Flowonix pump in place. She does have antalgic gait. Motor strength of lower extremities is 5/5. There is no gross sensory deficit. Tai and drug screen are all appropriate. We refilled her pump with intrathecal hydromorphone 7 mg/mL. We continued her at 0.83 mg/day. Procedure Details:: Informed consent was obtained and the risks and benefits of the procedure was explained to the patient. The patient was taken to the procedure room. The pump was interrogated. The area over the pump was prepped using ChloraPrep. The pump was accessed with a 22-gauge needle. Approximately 8 mL's of the intrathecal solution was withdrawn and discarded. The pump was then refilled with 20 mL's of intrathecal hydromorphone 7 mg/mL. The pump was interrogated an d the infusion was continued at 0.83 mg/day. The patient tolerated the procedure well with no complication. Plan and Disposition:: Will follow-up with this patient at her next pump refill. This will be in approximately 3 months.
== END 2025-06-15 12:02 | disposition home or self-care (01) ==
LOC: SC.PAINP 09:15
PROVIDERS: PCP Family Medicine; Visit Provider Anesthesiology
DX: Z45.1 Encounter for adjustment and management of infusion pump (principal); M51.362 Other intervertebral disc degeneration, lumbar region with discogenic back pain and lower extremity pain; R26.89 Other abnormalities of gait and mobility; E03.9 Hypothyroidism, unspecified; K21.9 Gastro-esophageal reflux disease without esophagitis; F17.210 Nicotine dependence, cigarettes, uncomplicated; E78.5 Hyperlipidemia, unspecified; I10 Essential (primary) hypertension; F32.A Depression, unspecified; Z79.899 Other long term (current) drug therapy; Z79.890 Hormone replacement therapy; Z88.1 Allergy status to other antibiotic agents; Z88.0 Allergy status to penicillin; Z88.5 Allergy status to narcotic agent
CPT/HCPCS: 62370; 99221